=== PATIENT | male | born 2005 | race Two or more races ===

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

== ENCOUNTER 2023-12-27 15:10 | Emergency (ER) | payer SELFPAY | END 2023-12-27 16:08 | disposition home or self-care (01) | LOC: VM.ED 15:10 | DX: S62.334A Displaced fracture of neck of fourth metacarpal bone, right hand, initial encounter for closed fracture (principal); W21.06XA Struck by volleyball, initial encounter | CPT/HCPCS: 29125; 73130-RT; 99283; 99283-25 ==